=== PATIENT | male | born 1990 | race Caucasian/White ===

== ENCOUNTER 2018-08-02 22:45 | Emergency (ER) | payer MEDICARE, MEDICAID ==
[~2018-08-02] VITALS: Ht 172.7 cm; Wt 180.0 kg
[2018-08-03] MEDS ORDERED: HYDROCHLOROTHIAZIDE 25MG TABLET PO ONE (02:45)
[2018-08-03 03:05] LABS: BASOPHILS % 0.8 % (0.0-2.0); EOSINOPHILS % 1.2 % (0.0-5.0); HEMATOCRIT. 43.2 % (42.0-52.0); HEMOGLOBIN. 14.6 g/dL (14.0-18.0); MEAN CORPUSCULAR HEMOGLOBIN 26.9 pg (28.0-32.0); MEAN CORPUSCULAR VOLUME 79.6 fL (80.0-94.0); MEAN PLATELET VOLUME 8.7 fl (7.4-10.4); MONOCYTES % 10.7 % (2.0-8.0); NEUTROPHILS % 65.3 % (40.0-76.0); PLATELET 256 x1000/uL (130-400); RED BLOOD CELL COUNT 5.43 mill/uL (4.7-6.1); RED CELL DISTRIBUTION WIDTH 15.3 % (11.6-14.6)
[2018-08-03 03:12] LABS: CHLORIDE 104 mEq/L (98-107)
[2018-08-03 03:16] LABS: ETHANOL BLOOD < 10 mg/dL
[2018-08-03 03:44] LABS: CLARITY URINE CLEAR (CLEAR); COLOR URINE DARK YELLOW (YELLOW); KETONES URINE 1+ (NEGATIVE); LEUKOCYTE ESTERASE URINE NEGATIVE (NEGATIVE); NITRITE URINE NEGATIVE (NEGATIVE); OCCULT BLOOD URINE NEGATIVE (NEGATIVE); PROTEIN URINE NEGATIVE (NEGATIVE); SPECIFIC GRAVITY URINE 1.029 (1.005-1.030)
[2018-08-03 03:54] LABS: *BARBITURATES SCREEN URINE NEGATIVE (NEGATIVE); *BENZODIAZEPINES SCREEN URINE NEGATIVE (NEGATIVE); *COCAINE SCREEN URINE NEGATIVE (NEGATIVE)
[2018-08-03 03:55] LABS: *AMPHETAMINES SCREEN URINE NEGATIVE (NEGATIVE); CANNABINOID URINE SCREEN NEGATIVE (NEGATIVE); METHADONE URINE SCREEN NEGATIVE (NEGATIVE); OPIATES URINE SCREEN NEGATIVE (NEGATIVE); PHENCYCLIDINE URINE SCREEN NEGATIVE (NEGATIVE)
[2018-08-03 14:11] VITALS: BP 130/81
== END 2018-08-03 14:12 | disposition home or self-care (01) ==
LOC: ER 22:45
DX: R44.0 Auditory hallucinations (principal); I10 Essential (primary) hypertension; R06.02 Shortness of breath; F31.9 Bipolar disorder, unspecified; Z98.890 Other specified postprocedural states
CPT/HCPCS: 36415; 71045; 80053; 80305; 80307; 80329; 81003; 85025; 93005; 99284; G0482